=== PATIENT | female | born 1990 | race African-American/Black ===

== ENCOUNTER 2023-12-16 20:23 | Emergency (ER) | payer MEDICAID, SELFPAY ==
--- NOTE | ~2023-12-16 | XR_ITS ---
EXAMINATION: XR chest 1V portable DATE: 12/16/2023 21:43 INDICATION: Shortness of breath TECHNIQUE: frontal view of the chest was obtained. COMPARISON: None FINDINGS: The lungs are clear with no focal airspace opacities, pulmonary edema, pleural effusion or pneumothor ax. The cardiomediastinal silhouette is normal. Visualized bones and soft tissues are unremarkable. IMPRESSION: 1. No acute cardiopulmonary disease. Reviewed, dictated and finalized at location A.
[2023-12-16 20:26] VITALS: BP 87/71; PULSE 86; RESP 20; TEMP 36.4; O2SAT 100
--- NOTE | 2023-12-16 20:31 | ED.ASTHMA ---
HPI - Asthma General Chief Complaint: Asthma Stated Complaint: shortness of breath Time Seen by Provider: 12/16/23 20:31 Source: patient Mode of arrival: ambulatory Limitations: no limitations History of Present Illness HPI Narrative: 33-year-old female with a history of obesity, asthma since age 1 presents to the ER a 3 day history of -- nonproductive cough -- intermittent shortness of breath. The shortness of breath wakes her up from a sleep at night -- wheezing no chest pain. No upper respiratory symptoms. No fever. the patient usually has asthma flare ups during the spring. MD complaint: asthma attack Onset (ago): day(s) ( Three days) Severity: moderate Associated symptoms: none Asthma History: childhood onset Treatments Prior to Arrival: inhaled bronchodilator Related Data Current Asthma Therapy: inhaled bronchodilator Home Medications Medication Instructions Recorded Confirmed albuterol sulfate 2.5 mg/3 mL 2.5 mg inhalation QID 12/16/23 12/16/23 (0.083 %) solution for nebulization albuterol sulfate 90 mcg/actuation 90 mcg inhalation 12/16/23 aerosol inhaler Allergies Allergy/AdvReac Type Severity Reaction Status Date / Time No Known Allergies Allergy Verified 12/16/23 20:32 Review of Systems Review of Systems: All systems reviewed & are unremarkable except as noted in HPI and below Constitutional: Constitutional: Reports as per HPI and Reports no additional constitutional complaints Eyes: Eyes: Reports as per HPI and Reports no additional eye complaints ENT: Reports system reviewed and no additional complaints, except as documented and Reports as per HPI Cardiovascular: Cardiovascular: Reports as per HPI and Reports no additional cardiovascular complaints Respiratory: Respiratory: Reports as per HPI, Reports no additional respiratory complaints, Reports cough, Reports dyspnea and Reports wheezing Gastrointestinal: Gastrointestinal: Reports as per HPI and Reports no additional gastrointestinal complaints Genitourinary: Genitourinary: Reports no additional female genitourinary complaints and Reports as per HPI Musculoskeletal: Musculoskeletal: Reports no additional musculoskeletal complaints and Reports as per HPI Integumentary/Breasts: Skin/Breast: Reports system reviewed and no additional complaints, except as docu and Reports as per HPI Neurologic: Reports system reviewed and no additional complaints, except as documented and Reports as per HPI Psychiatric: Psychiatric: Reports no additional psychiatric complaints and Reports as per HPI Endocrine: Endocrine: Reports no additional endocrine complaints and Reports as per HPI Hematologic/Lymphatic: Hematologic/Lymphatic: Reports no additional hematologic/lymphatic complaints and Reports as per HPI Allergic/Immunologic: Allergic/Immunologic: Reports no additional allergic/immunologic complaints and Reports as per HPI [facility] Past Medical History Medical History (Updated 12/16/23 @ 22:14 by Justyn Montiel MD) Asthma Social History Social History (Updated 12/16/23 @ 20:41 by Justyn Montiel MD) Social History: nonsmoker Exam Narrative: oxygen saturation 100% on room air. Const: General: healthy appearing and no acute distress Nutritional Appearance: obese Orientation/consciousness: patient oriented x3 Limitations: no limitations HENMT: Head: normal to inspection Ears: external ears normal Face/Nose/Sinus: Normal external nose present Face and sinus: normal facial exam Mouth: Yes Normal oral and palatal mucosa present Throat: posterior oropharynx normal Eyes: Conjunctivae: conjunctivae normal Pupils: Equal, round and reactive pupils present EOM: EOMs intact bilaterally Direct Ophthalmoscopy: no photophobia Neck: Neck: normal visual inspection, no lymphadenopathy and no meningeal signs Chest: Chest palpation & inspection: normal inspection of the chest Resp: Effort & Inspection: tachypneic Auscult
[2023-12-16] MEDS: methylPREDNISolone SOD SUCC 125 MG VIAL IM (20:58)
[2023-12-16] MEDS: IPRATROPIUM 0.5 MG/ALBUTEROL SULFATE 2.5 MG AMPUL.NEB 3 ML INHALATION (21:01)
[2023-12-16 21:03] LABS: Pregnancy On Board Control Positive; Urine Pregnancy Test Negative
--- NOTE | 2023-12-16 21:05 | PC.NURSE ---
patient medicated per order, see MAR. adjusted on stretcher for comfort. call light within reach.
[2023-12-16 21:58] LABS: SARS-CoV-2 RNA PCR Negative (Negative)
[2023-12-16 22:00] LABS: Influenza A QL RT-PCR Negative (Negative); Influenza B QL RT-PCR Negative (Negative); RSV RNA, RT-PCR Negative (Negative)
[2023-12-16 22:14] VITALS: BP 106/75; PULSE 89; RESP 18; O2SAT 98
[2023-12-16 22:19] VITALS: BP 138/91; PULSE 70; RESP 18; TEMP 37.3; O2SAT 96
== END 2023-12-16 22:26 | disposition home or self-care (01) ==
PROVIDERS: Emergency Provider Internal Medicine Critical Care Medicine
DX: J45.901 Unspecified asthma with (acute) exacerbation (principal); Z79.51 Long term (current) use of inhaled steroids; Z20.822 Contact with and (suspected) exposure to COVID-19
CPT/HCPCS: 71045; 81025; 87637; 94640; 96372; 99283; J2919